=== PATIENT | male | born 1955 | race Caucasian/White ===

== ENCOUNTER 2022-04-14 15:46 | Observation (INO) | payer MEDICARE, SELFPAY ==
[2022-04-14] VITALS (22 sets, daily range): BP systolic 145–183; BP diastolic 81–108; PULSE 61–91; RESP 0–25; TEMP 36.6–37.1; O2SAT 21–97; BMI 33.6
--- NOTE | 2022-04-14 16:01 | ECG_ITS ---
[facility], 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 Measurements Intervals [place] Rate: 82 P: 57 SC: 160 QRS: -56 QRSD: 99 T: -35 QT: 382 QTc: 446 Interpretive Statements SINUS RHYTHM INCOMPLETE RIGHT BUNDLE BRANCH BLOCK [90+ ms QRS DURATION, TERMINAL R IN V1/V2, 40+ ms S IN I/aVL/V4/V5/V6] LEFT ANTERIOR FASCICULAR BLOCK [QRS AXIS <= -45, QR IN I, RS IN II] POSSIBLE ANTERIOR MYOCARDIAL INFARCTION , OF INDETERMINATE AGE [30 ms Q WAVE IN V3/V4, OR R < 0.2 mV IN V4] No previous ECG available for comparison Electronically Signed On 04-15-2022 14:29:09 CDT by Thony Valiente M.D. [id number]
--- NOTE | 2022-04-14 16:03 | ED_ITS ---
HPI - Chest Pain General: Chief Complaint: Chest Pain Stated Complaint: cp Time Seen by Provider: 04/14/22 16:03 History of Present Illness: Mr. Paulino is a 66-year-old gentleman with history of hypertension, hyperlipidemia, diabetes, former smoker who presents to the emergency department due to chest pain. Reports intermittent episodes in the past typically in the left shoulder associated with exertion that improves with rest however starting last night he began to have more central chest pain which she just describes as a pain that radiates to the left shoulder and arm. Mild associated shortness of breath. Additionally had an episode of dizziness last night though this was associated with low blood sugar and improved after eating. Chest pain became severe with exertion earlier today and has not significantly improved since onset. Positive family history for sister who in her 40s from heart disease. No other specific changes in health, exacerbating, or alleviating factors identified. Onset (ago): hour(s) Timing of current episode: constant Prior episodes: Yes Onset: during exertion Pain location: substernal Pain radiation: left arm and left shoulder Severity: severe Quality: other (Pain) Exacerbating factors: exertion Associated symptoms: Reports dyspnea Treatment prior to arrival: aspirin and nitroglycerin Review of Systems General: Reports: 10 or more systems reviewed and unremarkable except in HPI and below Resp: Reports: dyspnea PFSH ED PFSH: Medical History Diabetes Hyperlipidemia Hypertension Surgical History History of cataract surgery History of hernia repair History of shoulder surgery Family History Other Family history of premature coronary artery disease Social History Smoking and tobacco status: former smoker Physical Exam Const: COMMON NORMALS: alert GENERAL APPEARANCE: cooperative and well developed HENMT: COMMON NORMALS: normocephalic and atraumatic HEAD & SCALP: normocephalic and atraumatic Eye: COMMON NORMALS: conjunctivae normal CONJUNCTIVA: Yes conjunctivae normal SCLERA: sclerae normal Neck/C-Spine: COMMON NORMALS: supple GENERAL: Yes trachea midline Resp: COMMON NORMALS: normal respiratory effort and clear to auscultation bilaterally EFFORT & INSPECTION: Yes able to speak in complete sentences AUSCULTATION: clear to auscultation bilaterally Cardio: COMMON NORMALS: regular rate and regular rhythm RATE: regular rate RHYTHM: regular rhythm GI: COMMON NORMALS: Soft to palpation PALPATION: Yes Soft to palpation and No Tenderness to palpation present (GI) Extremity: GENERAL: Yes normal exam except as noted and No edema Neuro: COMMON NORMALS: moves all extremities SENSORIUM/ORIENTATION: Yes alert and No Orientation impaired Psych: COMMON NORMALS: mental status grossly normal and Normal thought process present THOUGHT PROCESS: Normal thought process present Course ED course: - Patient was seen and evaluated by me at bedside - Patient placed on cardiac monitors, IV access obtained - Initial evaluation notable for exam as above - Labs and xrays personally interpreted by me. EKG with nonspecific ST segment abnormalities, no STEMI. -Analgesia given. 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 - Labs notable for minimal leukocytosis, no significant metabolic abnormality. - Imaging notable for no lobar consolidation or pneumothorax. - Upon serial reexamination after treatment the patient was improved - Based on patient history, evaluation, and testing as interpreted the most likely cause of the patient's condition is NSTEMI - The results of ED evaluation were discussed with the patient including plan for admission due to requirement for level of care not available if discharged to prevent significant worsening/deterioration. - Admitting service was contacted and Dr Arredondo with the hospitalist service agreed to admit the patient - Patient was admitted without further deterioration or significant events. Note: Click bubbles or prepopulated wan in note writing are used for assistance with data collection and billing and are inherently more limited than narrative and other text portions of this note. Please use narrative for additional clinical history and defer to narrative/free test for any case of contradictory information. If information appears in only free text or click bubble it should be considered present or absent as reported. Please contact note press writer for clarifications of clinical information or contradictory information. MDM is a brief summary, contradictory or erroneous seeming information should be clarified and full note should be reviewed. Vital Signs: Vital signs: Vital Signs Temperature 98.7 F 04/15/22 15:09 Pulse Rate 85 04/15/22 15:09 Respiratory Rate 23 H 04/15/22 15:09 Blood Pressure 146/83 04/15/22 15:09 Pulse Oximetry 92 04/15/22 15:09 Oxygen Delivery Me thod 04/15/22 11:45 Oxygen Flow Rate 94 04/15/22 11:45 MDM - Chest Pain Medical Decision Making 67-year-old gentleman presenting with chest pain. History is concerning for cardiac chest pain and patient has evidence of NSTEMI. Admitted for further management and cardiology intervention. Medical Records I reviewed the patient's medical records. Lab Data I reviewed the patient's lab results. : 04/14/22 16:34 04/15/22 04:33 Radiology Impressions Chest X-Ray 04/14/22 16:15 IMPRESSION: Prominent right hilar region, perhaps reflecting prominent pulmonary vasculature, consider further evaluation with a chest CT to evaluate for possible adenopathy or a less likely mass. Laboratory Results WBC 11.5 10^3/uL (4.0-10.0) H 04/14/22 16:34 RBC 5.31 10^6/uL (4.1-5.3) H 04/14/22 16:34 Hgb 15.1 g/dL (11.7-16.6) 04/14/22 16:34 Hct 46.4 % (42.0-52.0) 04/14/22 16:34 MCV 87.4 fl (80-94) 04/14/22 16:34 MCH 28.4 pg (28.0-34.0) 04/14/22 16:34 MCHC 32.5 g/dL (30.0-36.0) 04/14/22 16:34 RDW 14.6 % (12.1-15.1) 04/14/22 16:34 Plt Count 243 10^3/cmm (130-400) 04/14/22 16:34 MPV 10.4 fL (7.4-10.4) 04/14/22 16:34 Lymph % (Auto) Not Reportable 04/14/22 16:34 [place] % (Auto) Not Reportable 04/14/22 16:34 Lymph # (Auto) Not Reportable 04/14/22 16:34 [place] # (Auto) Not Reportable 04/14/22 16:34 Total Counted 100 (0-100) 04/14/22 16:34 Atypical Lymphs % 13.0 % (0-5) H 04/14/22 16:34 Absolute Neutrophils 4.9 10^3/cmm (1.4-6.5) 04/14/22 16:34 Segmented Neutrophils 43 % 04/14/22 16:34 Abs Segm Neuts (Man) 4.9 10/cmm (1.6-7.1) 04/14/22 16:34 Band Neutrophils 0.0 % 04/14/22 16:34 Abs Band Neuts (Man) 0.0 10^3/cmm (0.0-1.2) 04/14/22 16:34 Absolute Lymphocytes 5.8 10^3/cmm (1.2-3.4) H 04/14/22 16:34 Lymphocytes (Manual) 37 % 04/14/22 16:34 Monocytes (Manual) 4.0 % 04/14/22 16:34 Absolute Monocytes 0.5 10^3/cmm (0.1-0.6) 04/14/22 16:34 Eosinophils (Manual) 3 % 04/14/22 16:34 Absolute Eosinophils 0.3 10^3/cmm (0.0-0.7) 04/14/22 16:34 Basophils (Manual) 0.0 % 04/14/22 16:34 Absolute Basophils 0.0 10^3/cmm (0.0-0.2) 04/14/22 16:34 Nucleated RBCs 1.0 /100WBC (0-1) 04/14/22 16:34 Smudge Cells 4+ H 04/14/22 16:34 Platelet Estimate Normal (Normal) 04/14/22 16:34 Sodium 137 mmol/L (136-145) 04/14/22 16:34 Potassium 4.4 mmol/L (3.5-5.1) 04/14/22 16:34 Chloride 102 mmol/L (98-107) 04/14/22 16:34 Carbon Dioxide 23 mmol/L (22-29) 04/14/22 16:34 Anion Gap 16.4 (5-19) 04/14/22 16:34 BUN 18 mg/dL (8-23) 04/14/22 16:34 Creatinine 1.0 mg/dL (0.7-1.2) 04/14/22 16:34 GFR Calculation 74.3 mL/min (90-130) L 04/14/22 16:34 Glucose 224 mg/dL (65-115) H 04/14/22 16:34 Calculated Osmolality 293 mOsm/kg (285-295) 04/14/22 16:34 Calcium 9.4 mg/dL (8.5-10.5) 04/14/22 16:34 Total Bilirubin 0.4 mg/dL (0.15-1.2) 04/14/22 16:34 AST 23 U/L (0-40) 04/14/22 16:34 ALT 29 U/L (0-41) 04/14/22 16:34 Alkaline Phosphatase 60 U/L (40-130) 04/14/22 16:34 Troponin T Baseline 83 ng/L (0-15) H 04/14/22 16:34 NT-Pro-B Natriuret Pep 479 pg/mL (0-125) H 04/14/22 16:34 Total Protein 6.8 g/dL (6.6-8.7) 04/14/22 16:34 Albumin 4.1 g/dL (3.5-5.2) 04/14/22 16:34 Globulin 2.7 g/dL (1.3-4.6) 04/14/22 16:34 Lipase 55 U/L (13-60) 04/14/22 16:34 Discharge Plan Discharge Patient Disposition: Placed in Observation Admit Provider: Daren Arredondo Clinical Impression: Chest pain, Acute non-ST elevation myocardial infarction (NSTEMI) Coding Level of Care Code ED Sales Representative Facility Services for Aveg Fwd Exam Comprehensive
--- NOTE | 2022-04-14 16:15 | XRR_ITS ---
PROCEDURE INFORMATION: Exam: XR Chest Exam date and time: 04/14/2022 4:25 PM Age: 66 years old Clinical indication: Angina; Additional info: Cp TECHNIQUE: Imaging protocol: Radiologic exam of the chest. Views: 1 view. COMPARISON: No relevant prior studies available. FINDINGS: Lungs: Prominent right hilar region, perhaps reflecting prominent pulmonary vasculature, consider further evaluation with a chest CT to evaluate for possible adenopathy or a less likely mass. Pleural spaces: Unremarkable. No pleural effusion. No pneumothorax. Heart/Mediastinum: Unremarkable. No cardiomegaly. Bones/joints: Unremarkable. XR/XR chest 1V portable [id number] IMPRESSION: Prominent right hilar region, perhaps reflecting prominent pulmonary vasculature, consider further evaluation with a chest CT to evaluate for possible adenopathy or a less likely mass.
[2022-04-14 16:51] LABS: Hematocrit 46.4 % (42.0-52.0); Hemoglobin 15.1 g/dL (11.7-16.6); Mean Corpuscular HGB Conc 32.5 g/dL (30.0-36.0); Mean Corpuscular Hemoglobin 28.4 pg (28.0-34.0); Mean Corpuscular Volume 87.4 fl (80-94); Mean Platelet Volume 10.4 fL (7.4-10.4); Platelet Count 243 10^3/cmm (130-400); Red Blood Count 5.31 10^6/uL (4.1-5.3); Red Cell Distribution Width 14.6 % (12.1-15.1); White Blood Count 11.5 10^3/uL (4.0-10.0)
[2022-04-14] MEDS: morphine 4 mg/mL SDV 1 mL IVP (16:51)
--- NOTE | 2022-04-14 17:14 | PC.NURSE ---
patient continues to c/o left shoulder pain 02/13
[2022-04-14 17:22] LABS: Troponin(5th) Baseline 83 ng/L (0-15)
[2022-04-14 17:29] LABS: Absolute Segmented Neutrophil 4.9 10/cmm (1.6-7.1); Lymphocytes 37 %; Segmented Neutrophils 43 %; Slide Review Slide Review Perform; Total Cells Counted 100 (0-100)
[2022-04-14 17:30] LABS: Absolute Eosinophils 0.3 10^3/cmm (0.0-0.7); Absolute Neutrophil 4.9 10^3/cmm (1.4-6.5); Eosinophils 3 %; Lymphocytes Absolute 5.8 10^3/cmm (1.2-3.4); Monocytes Absolute 0.5 10^3/cmm (0.1-0.6); Platelet Estimate Normal (Normal); Smudge Cells 4+
[2022-04-14 17:31] LABS: Alanine Aminotransferase 29 U/L (0-41); Albumin Level 4.1 g/dL (3.5-5.2); Alkaline Phosphatase 60 U/L (40-130); Anion Gap 16.4 (5-19); Aspartate Amino Transferase 23 U/L (0-40); Blood Urea Nitrogen 18 mg/dL (8-23); Calcium 9.4 mg/dL (8.5-10.5); Carbon Dioxide 23 mmol/L (22-29); Chloride 102 mmol/L (98-107); Globulin 2.7 g/dL (1.3-4.6); Glomerular Filtration Rate 74.3 mL/min (90-130); Glucose 224 mg/dL (65-115); Lipase 55 U/L (13-60); NT Pro B Type Natriuretic Pept 479 pg/mL (0-125); Osmolality Calculated 293 mOsm/kg (285-295); Potassium 4.4 mmol/L (3.5-5.1); Sodium 137 mmol/L (136-145); Total Bilirubin 0.4 mg/dL (0.15-1.2); Total Protein 6.8 g/dL (6.6-8.7)
[2022-04-14] MEDS: nitroglycerin 0.4 mg sublingual Tablet SUBLINGUAL ×3 (17:42→23:19)
--- NOTE | 2022-04-14 17:52 | ECG_ITS ---
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 Measurements Intervals [place] Rate: 75 P: -9 GA: 143 QRS: -59 QRSD: 96 T: -90 QT: 392 QTc: 438 Interpretive Statements SINUS RHYTHM LOW QRS VOLTAGE IN PRECORDIAL LEADS [QRS DEFLECTION < 1.0 mV IN CHEST LEADS] INCOMPLETE RIGHT BUNDLE BRANCH BLOCK [90+ ms QRS DURATION, TERMINAL R IN V1/V2, 40+ ms S IN I/aVL/V4/V5/V6] LEFT ANTERIOR FASCICULAR BLOCK [QRS AXIS <= -45, QR IN I, RS IN II] PROBABLE ANTEROSEPTAL MYOCARDIAL INFARCTION , OF INDETERMINATE AGE [35 ms Q WAVE IN V1-V4] MODERATE T-WAVE ABNORMALITY, CONSIDER LATERAL ISCHEMIA [-0.1+ mV T-WAVE IN I/aVL/V5/V6] Compared to ECG 04/14/2022 16:09:35 Low QRS voltage now present T-wave abnormality now present Possible ischemia now present Myocardial infarct finding still present Electronically Signed On 04-15-2022 14:41:38 CDT by Thony Valiente M.D. [email or web address]/store/[id number]
--- NOTE | 2022-04-14 17:55 | PC.NURSE ---
ekg complete and given to physician
--- NOTE | 2022-04-14 18:06 | PC.NURSE ---
patient states he has relief following first dose of nitro
--- NOTE | 2022-04-14 18:52 | USCV_ITS ---
Jack Paulino Age: 66 Gender: M : 1955 Exam Date: 04/14/2022 19:59 Ordering Phys: Daren Arredondo MD Technologist: SANTOS Exam Location: [facility] [place] Indication: chest pain, elevated troponin, no history of cardiac intervention per patient BP: 151 / 86 HR: 78 Rhythm: Sinus Technical Quality: Adequate MEASUREMENTS (Male / Female) Normal Values 2D ECHO LV Diastolic Diameter PLAX 4.7 cm 4.2 - 5.9 / 3.9 - 5.3 cm LV Systolic Diameter PLAX 3.3 cm IVS Diastolic Thickness 1.4 cm 0.6 - 1.0 / 0.6 - 0.9 cm IVS Systolic Thickness 1.3 cm LVPW Diastolic Thickness 1.4 cm 0.6 - 1.0 / 0.6 - 0.9 cm LVPW Systolic Thickness 1.6 cm LVOT Diameter 2.3 cm LV Ejection Fraction 2D Teich 55.2 % LV Ejection Fraction MOD 2C 38.4 % LV Ejection Fraction 2C AL 36.6 % LA Diameter 3.8 cm LA Width 4.3 cm LA Height 6.3 cm RA Width 4.0 cm RA Height 4.1 cm Aorta at Sinotubular Diameter 3.8 cm IVC Diameter 2.5 cm M-MODE Aortic Annulus Diameter 3.7 cm LA Ao Ratio MM 1.0 MV E Point Septal Separation 1.1 cm DOPPLER AV Peak Velocity 93.0 cm/s LVOT Peak Velocity 84.0 cm/s AV Area Cont Eq vti 3.0 cm squared AV Area Cont Eq pk 3.7 cm squared MV Area PHT 5.6 cm squared Mitral E to A Ratio 1.3 MV E' Velocity 49.5 cm/s Mitral E to MV E' Ratio 8.4 Mitral E to LV E' Lateral Ratio 8.5 Mitral E to LV E' Septal Ratio 8.4 TR Peak Velocity 271.0 cm/s TR Peak Gradient 29.4 mmHg TV Peak E Velocity 45.0 cm/s Right Atrial Pressure 10.0 mmHg Pulmonary Artery Systolic Pressu 39.4 mmHg PV Peak Velocity 89.0 cm/s RV Acceleration Time 0.1 s RV Ejection Time 0.4 s RV AcT/ET 0.3 FINDINGS Left Ventricle Left ventricle is normal in size. LV systolic function is severely reduced with EF of 25 to 30%. Apical wall, mid to apical anterolateral and anterior leija are akinetic. Severe hypokinesis of mid to apical anteroseptal, inferior lateral leija. Diastolic function is normal. [place] is not very well visualized however LV thrombus cannot be ruled out. Right Ventricle Grossly normal in size and function Right Atrium Not well visualized Left Atrium Not well-visualized Mitral Valve Mitral valve is structurally normal. No significant stenosis. Mild regurgitation. Aortic Valve Structurally normal valve. Mild aortic regurgitation. No significant stenosis. Tricuspid Valve Mild tricuspid regurgitation. RVSP is 35 to 40 mmHg. This is consistent with mild pulmonary hypertension. Pulmonic Valve Not well-visualized. Pericardium Normal Aorta Mildly dilated aorta IVC CONCLUSIONS Left ventricle is normal in size. LV systolic function is severely reduced with EF of 25 to 30%. Above-mentioned regional wall motion abnormalities are seen. [place] is not very well visualized however LV thrombus cannot be ruled out. Mild mitral regurgitation. Mild aortic regurgitation. Mild mild pulmonary hypertension. Mild tricuspid regurgitation. Mildly dilated aorta. No comparison studies are available. Will recommend limited echocardiogram with contrast to rule out LV thrombus Thony Valiente MD (Electronically Signed) Final Date: 15 April 2022 13:38 S
[2022-04-14 19:10] LABS: Troponin 5 2HR 112.3 ng/L (0-15); Troponin 5 2HR Delta 29.3 ABS# (0-10)
--- NOTE | 2022-04-14 19:23 | PM.HP ---
Providers/Chief Complaint Admitting Physician: Daren Arredondo MD Primary Care Provider: Mely Vides DO Chief Complaint: cp History of Present Illness Jack Paulino is a 66 year old male with diabetes, hyperlipidemia, hypertension and a remote history of smoking stopped 20 years ago. He also has a sister who had ME in her 40s patient was noted recently that with walking from his neighbors house back to his he had chest discomfort mild and left shoulder pain. This seemed to be relieved by rest. Today he states he had severe chest pain but that it had been off and on since yesterday 8 PM As result he came to the emergency department and had troponin 80 increasing to 120. He has been referred for admission and also cardiology has been consulted with plan for evaluation in the morning. EKG shows incomplete bundle branch block but there is poor septal R wave progression and T wave abnormality suspicious for ischemia Review of Systems Narrative: General patient denies weight gain or weight loss Cardiovascular positive for chest pain on exertion has never had coronary artery disease Respiratory no shortness of breath cough wheezing GI no nausea vomiting diarrhea constipation no dysuria hematuria incontinence Neuro no seizures strokes limb weakness Heme no history of bleeding problems he does bruise easily [place] bruised all the time Musculoskeletal he has had shoulder surgery before and states that although the discomfort sometimes feels like what he had before his shoulder surgery generally he has no pain and has 96% function of his arms Psych negative Medications/Allergies Home Medications Medication Instructions Recorded Confirmed Last Taken Type apple cider vinegar 300 mg tablet 900 mg PO BID 04/14/22 04/14/22 04/14/22 History aspirin 81 mg chewable tablet 81 mg PO BEDTIME 04/14/22 04/14/22 04/13/22 History cyanocobalamin (vitamin B-12) 1,000 mcg PO DAILY 04/14/22 04/14/22 04/14/22 History 1,000 mcg tablet (Vitamin B-12) fenofibrate 160 mg tablet 160 mg PO DAILY 04/14/22 04/14/22 04/13/22 History fluoxetine 20 mg capsule 20 mg PO DAILY 04/14/22 04/14/22 04/14/22 History gabapentin 400 mg capsule 400 mg PO TID 04/14/22 04/14/22 04/14/22 History glipizide 10 mg tablet 10 mg PO BID 09/03/2804/14/22 04/14/22 History levothyroxine 50 mcg tablet 50 mcg PO DAILY 04/14/22 04/14/22 04/14/22 History lisinopril 10 mg tablet 10 mg PO DAILY 04/14/22 04/14/22 04/14/22 History meclizine 25 mg tablet 25 mg PO BID 04/14/22 04/14/22 04/14/22 History meloxicam 15 mg tablet 15 mg PO DAILY 04/14/22 04/14/22 04/14/22 History metformin 1,000 mg tablet 1,000 mg PO BID 04/14/22 04/14/22 04/14/22 History pantoprazole 40 mg tablet,delayed 40 mg PO DAILY 04/14/22 04/14/22 04/14/22 History release tramadol 50 mg tablet 100 mg PO TID PRN Pain 04/14/22 04/14/22 04/14/22 History trazodone 50 mg tablet 50 mg PO BEDTIME 04/14/22 04/14/22 04/13/22 History vit 1 tab PO BID 04/14/22 04/14/22 04/14/22 History [id number] 500 mg-50 mg-25 mg-40 mg tablet (Bioflex) Allergies Allergy/AdvReac Type Severity Reaction Status Date / Time metformin [From t] Allergy ADR-Dizzine Verified 04/14/22 16:02 ss sitagliptin [From t] Allergy ADR-Dizzine Verified 04/14/22 16:02 ss PFSH Acute PFSH: Medical History Diabetes Hyperlipidemia Hypertension Surgical History History of cataract surgery History of hernia repair History of shoulder surgery Family History Other Family history of premature coronary artery disease Social History Smoking and tobacco status: former smoker Vitals/I&O/Wt Last Vital Signs Temp 98 F 04/14/22 15:49 Pulse 86 04/14/22 19:14 Resp 17 04/14/22 19:14 BP 152/107 04/14/22 19:14 Pulse Ox 97 04/14/22 19:14 O2 Del Method 04/14/22 19:14 Weight last 48 hrs Weight 109.316 kg Physical Exam Narrative: General well-developed well-nourished male in no acute cardiopulmonary stress CV regular rate and rhythm Lungs clear to auscultation bilateral Abdomen positive bowel sounds soft nontender Calves no tenderness pedal edema shoulders left shoulder normal range of motion no tenderness with active or passive range of motion Psych mood and affect appropriate Skin warm and dry Data : 04/14/22 16:34 04/14/22 16:34 A&P Assessment and plan (1) Acute non-ST elevation myocardial infarction (NSTEMI): Started on a heparin drip hold metformin. Repeat mini panel and troponin in the morning Status: Acute (2) Diabetes: Hold metformin Status: Acute (3) Hyperlipidemia: Continue his cholesterol medication fenofibrate Add atorvastatin 40 mg p.o. x1 Status: Acute (4) Hypertension: Blood pressure stable Status: Acute Attestations Medical Necessity Statement*: Patient be admitted to the hospital for cardiology consultation potentially angiogram tomorrow Time Spent in Patient Care: 70 minutes spent in evaluation coronation care for this patient today Coding Level of Care Code Acute Anthropologist for Jenna Fwisabella History Comprehensive Exam Comprehensive Medical Decision Making High Complexity Diagnoses Acute non-ST elevation myocardial infarction (NSTEMI) I21.4 Diabetes E11.9 Hyperlipidemia E78.5 Hypertension I10
[2022-04-14] MEDS: trazodone 50 mg Tablet PO (21:14)
[2022-04-14] MEDS: pantoprazole DR 40 mg Tablet PO (21:14)
[2022-04-14] MEDS: gabapentin 400 mg Capsule PO (21:14)
[2022-04-14] MEDS: aspirin 81 mg Chew Tablet 324 MG PO (21:14)
[2022-04-14] MEDS: atorvastatin 40 mg Tablet PO (21:14)
[2022-04-14 21:31] LABS: Partial Thromboplastin Time 22.6 SECONDS (23.9-36.7)
--- NOTE | 2022-04-14 22:15 | ECG_ITS ---
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 Measurements Intervals [place] Rate: 78 P: 66 PA: 169 QRS: -50 QRSD: 117 T: -85 QT: 383 QTc: 438 Interpretive Statements SINUS RHYTHM LEFT ANTERIOR FASCICULAR BLOCK [QRS AXIS <= -45, QR IN I, RS IN II] POSSIBLE ANTERIOR MYOCARDIAL INFARCTION , OF INDETERMINATE AGE [30 ms Q WAVE IN V3/V4, OR R < 0.2 mV IN V4] MODERATE T-WAVE ABNORMALITY, CONSIDER LATERAL ISCHEMIA [-0.1+ mV T-WAVE IN I/aVL/V5/V6] Compared to ECG 04/14/2022 17:52:57 Incomplete right bundle-branch block no longer present Myocardial infarct finding still present T-wave abnormality still present Possible ischemia still present Electronically Signed On 04-15-2022 14:40:09 CDT by Thony Valiente M.D. [id number]
[2022-04-14] MEDS: heparin drip 25,000 UNIT/500 ML PREMIX 31 UNIT IV (22:36)
[2022-04-14] MEDS: heparin 5,000 unit/mL INJ 1 mL IV (22:36)
--- NOTE | 2022-04-14 23:30 | ECG_ITS ---
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 Measurements Intervals [place] Rate: 61 P: 50 CO: 161 QRS: -56 QRSD: 122 T: -89 QT: 430 QTc: 436 Interpretive Statements SINUS RHYTHM LEFT ANTERIOR FASCICULAR BLOCK [QRS AXIS <= -45, QR IN I, RS IN II] POSSIBLE ANTERIOR MYOCARDIAL INFARCTION , OF INDETERMINATE AGE [30 ms Q WAVE IN V3/V4, OR R < 0.2 mV IN V4] MODERATE T-WAVE ABNORMALITY, CONSIDER LATERAL ISCHEMIA [-0.1+ mV T-WAVE IN I/aVL/V5/V6] MODERATE T-WAVE ABNORMALITY, CONSIDER INFERIOR ISCHEMIA [-0.1+ mV T-WAVE IN II/aVF] Compared to ECG 04/14/2022 20:38:26 No significant changes Electronically Signed On 04-15-2022 14:27:45 CDT by Thony Valiente M.D. [id number]
--- NOTE | 2022-04-14 23:36 | PC.NURSE ---
Patient c/o persistent chest pain with only short term relief with nitrostat. Informed Dr Mak and received telephone order to start Nitro-Bid 1gm topically q6h. RBVO
[2022-04-14] MEDS: TRAMadol 50 mg Tablet 100 MG PO (23:38)
[2022-04-14] MEDS: nitroglycerin 1 gm/inch oint Pkt 1 INCH TOPICAL (23:39)
[2022-04-14 23:57] LABS: Troponin 5 6HR 159.8 ng/L (0-15); Troponin 5 6HR Delta 76.8 ng/L (0-12)
[2022-04-15] VITALS (63 sets, daily range): BP systolic 125–187; BP diastolic 6–135; PULSE 58–137; RESP 0–23; TEMP 36.4–37.1; O2SAT 91–99; BMI 34.9
[2022-04-15] MEDS: nitroglycerin 0.4 mg sublingual Tablet SUBLINGUAL ×2 (02:38→07:23)
--- NOTE | 2022-04-15 03:44 | PC.NURSE ---
Patient c/o chest pain 3 times thus far during shift. Pain relieved each time after 1 sublingual nitro. See MAR for administered times. Patient was ordered nitro paste after 2nd episode. Currently pt is resting in bed with eyes closed.
[2022-04-15 05:12] LABS: Blood Urea Nitrogen 15 mg/dL (8-23); Calcium 9.1 mg/dL (8.5-10.5); Carbon Dioxide 24 mmol/L (22-29); Chloride 105 mmol/L (98-107); Glomerular Filtration Rate 83.9 mL/min (90-130); Glucose 195 mg/dL (65-115); Osmolality Calculated 292 mOsm/kg (285-295); Sodium 138 mmol/L (136-145)
[2022-04-15 05:14] LABS: Anion Gap 13.1 (5-19); Potassium 4.1 mmol/L (3.5-5.1)
[2022-04-15 05:27] LABS: Partial Thromboplastin Time 50.9 SECONDS (23.9-36.7)
[2022-04-15] MEDS: nitroglycerin 1 gm/inch oint Pkt 1 INCH TOPICAL (05:45)
[2022-04-15] MEDS: heparin 5,000 unit/mL INJ 1 mL IV (05:45)
--- NOTE | 2022-04-15 06:57 | P.CONIM_ITS ---
Providers/Reason For Consult Consulting Physician/Specialty*: Thony Valiente MD/Cardiology Reason for Consult*: NSTEMI Requesting Physician: Dr Stinson Attending Physician: Daren Arredondo MD Primary Care Provider: Mely Vides DO History of Present Illness History of Present Illness Jack Paulino is a 66 year old male with past medical history of hypertension, hyperlipidemia and diabetes who presented to the hospital with 3 days of on and off chest pain symptoms. Yesterday in the afternoon it became severe and persistent. In the emergency room he was given nitro which improved the pain. Overnight on and off he has continued having substernal chest pain that radiates to the left arm. Currently on heparin drip. He was given aspirin. No Plavix given. Troponins trended up significantly from 88 baseline to 160. EKG shows T wave inversions in inferior and lateral leads. Review of Systems Narrative: CONSTITUTIONAL: No fever chills weight loss or gain or night sweats. [] HEENT: Normocephalic, atraumatic.[] RESPIRATORY: No cough, sputum, hemoptysis or wheezing.[] CARDIOVASCULAR: Has chest pain GI: no nausea vomiting diarrhea. [] GENETIC ENGINEER: No numbness, tingling, weakness or loss of function in any part of the body. [] MUSCULOSKELETAL: No knee or joint pain or rashes. [] Medications/Allergies Home Medications Medication Instructions Recorded Confirmed Last Taken Type apple cider vinegar 300 mg tablet 900 mg PO BID 04/14/22 04/14/22 04/14/22 History aspirin 81 mg chewable tablet 81 mg PO BEDTIME 04/14/22 04/14/22 04/13/22 History cyanocobalamin (vitamin B-12) 1,000 mcg PO DAILY 04/14/22 04/14/22 04/14/22 History 1,000 mcg tablet (Vitamin B-12) fenofibrate 160 mg tablet 160 mg PO DAILY 04/14/22 04/14/22 04/13/22 History fluoxetine 20 mg capsule 20 mg PO DAILY 04/14/22 04/14/22 04/14/22 History gabapentin 400 mg capsule 400 mg PO TID 04/14/22 04/14/22 04/14/22 History glipizide 10 mg tablet 10 mg PO BID 04/14/22 04/14/22 04/14/22 History levothyroxine 50 mcg tablet 50 mcg PO DAILY 04/14/22 04/14/22 04/14/22 History lisinopril 10 mg tablet 10 mg PO DAILY 04/14/22 04/14/22 04/14/22 History meclizine 25 mg tablet 25 mg PO BID 04/14/22 04/14/22 04/14/22 History meloxicam 15 mg tablet 15 mg PO DAILY 04/14/22 04/14/22 04/14/22 History metformin 1,000 mg tablet 1,000 mg PO BID 04/14/22 04/14/22 04/14/22 History pantoprazole 40 mg tablet,delayed 40 mg PO DAILY 04/14/22 04/14/22 04/14/22 History release tramadol 50 mg tablet 100 mg PO TID PRN Pain 04/14/22 04/14/22 04/14/22 History trazodone 50 mg tablet 50 mg PO BEDTIME 04/14/22 04/14/22 04/13/22 History vit 1 tab PO BID 04/14/22 04/14/22 04/14/22 History [id number] 500 mg-50 mg-25 mg-40 mg tablet (Bioflex) Allergies Allergy/AdvReac Type Severity Reaction Status Date / Time metformin [From ] Allergy ADR-Dizzine Verified 04/14/22 16:02 ss sitagliptin [From ] Allergy ADR-Dizzine Verified 04/14/22 16:02 ss Current Medications Generic Name Dose Route Start Last Admin Trade Name Lina PRN Reason Stop Dose Admin Aspirin 81 mg 04/14/22 21:00 04/14/22 21:16 Aspirin 81 Mg Chew Tablet PO Not Given BEDTIME ROMAINE Gabapentin 400 mg 04/14/22 21:00 04/14/22 21:14 Gabapentin 400 Mg Capsule PO 400 mg TID ROMAINE Administration Heparin Sodium (Porcine) 0 unit 04/14/22 19:20 04/15/22 05:45 Heparin 5,000 Unit/Ml Inj 1 Ml IV 2,200 unit PRN PRN Administration Heparin weight-base protocol Protocol Heparin Sodium/Sodium Chloride 25,000 unit in 500 mls @ 0 mls/hr 04/14/22 19:30 04/15/22 05:45 Heparin Drip IV 15.09 unit/kg/hr .Q0M ROMAINE 33 mls/hr Titration Protocol Per Protocol Nitroglycerin 0.4 mg 04/14/22 17:39 04/15/22 02:38 Nitroglycerin 0.4 Mg Sublingual Tablet SUBLINGUAL 1 tab Q5M PRN Administration CHEST PAIN Nitroglycerin 1 inch 04/14/22 23:30 04/15/22 05:45 Nitroglycerin 1 Gm/Inch Oint Pkt TOPICAL 1 inch Q6H ROMANIE Administration Pantoprazole Sodium 40 mg 04/14/22 18:45 04/14/22 21:[address] 40 Mg Tablet PO 40 mg DAILY ROMAINE Administration Tramadol HCl 100 mg 04/14/22 19:48 04/14/22 23:38 Tramadol 50 Mg Tablet PO 100 mg TID PRN Administration Pain Trazodone HCl 50 mg 04/14/22 21:00 04/14/22 21:14 Trazodone 50 Mg Tablet PO 50 mg BEDTIME ROMAINE Administration PFSH Acute PFSH: Medical History Diabetes Hyperlipidemia Hypertension Surgical History History of cataract surgery History of hernia repair History of shoulder surgery Family History Other Family history of premature coronary artery disease Social History Smoking and tobacco status: former smoker Vitals/I&O/Wt Last Vital Signs Temp 97.6 F 04/15/22 03:24 Pulse 66 04/15/22 03:41 Resp 14 04/15/22 03:24 BP 142/85 04/15/22 03:41 Pulse Ox 92 04/15/22 03:24 O2 Del Method 04/14/22 23:19 O2 Flow Rate 94 04/15/22 03:41 04/14/22 04/14/22 04/15/22 14:59 22:59 06:59 Intake Total 240 / 240 221.65 / 461.65 Balance 240 / 240 221.65 / 461.65 Weight last 48 hrs Weight 241 lb Weight 241 lb Physical Exam Narrative: GENERAL: Patient is alert, awake and oriented x3. [] NECK: No jugular vein distension. [] HEENT: No cyanosis. No icterus. No pallor. [] HEART: Regular S1 and S2. No murmur, rub or gallop. [] LUNGS: Clear to auscultate bilaterally. [] CENTRAL NERVOUS SYSTEM: Grossly nonfocal. [] EXTREMITIES: Lower extremities with 1+ edema bilaterally. Pulses palpable in the lower extremities, both dorsalis pedis and posterior tibial. [] Data : 04/14/22 16:34 04/15/22 04:33 A&P Assessment and plan (1) Acute non-ST elevation myocardial infarction (NSTEMI): Status: Acute (2) Diabetes: Status: Acute (3) Hyperlipidemia: Status: Acute (4) Hypertension: Status: Acute Plan Patient has presented with non-ST elevation NE and has typical chest pain. Has multiple CAD risk factors. Continue aspirin. Hold off on Plavix till angiogram. Continue heparin drip. Nitro drip as needed. Keep NPO. We will proceed with coronary angiogram with possible percutaneous coronary intervention today. Risks and benefits of the procedure have been discussed with the patient. He understands the risks benefits and wants to pro ceed with it. Order echocardiogram. Thank you for involving us with care of this patient. We will continue to follow. Please call with questions Consult Attestations Medical Necessity Statement: Care expected to cross 2 midnights Coding Level of Care Code Acute Station Examiner for Jenna Herrera Diagnoses Acute non-ST elevation myocardial infarction (NSTEMI) I21.4 Diabetes E11.9 Hyperlipidemia E78.5 Hypertension I10
--- NOTE | 2022-04-15 08:06 | XACV_ITS ---
Exam Room: [facility] Ht: 180 cm Wt: 113 kg BSA: 2.42 m2 Gender: Male : 1955 Any Known Allergies: Other Exam Priority: Routine Indication(s): - Non-ST elevation AL Procedure(s): Procedure Description: Diagnostic procedure Procedure Description: Left Heart Catheterization Procedure Description: Left ventriculography Procedure Description: Coronary Angiography Diagnostic Cath Status: Urgent Diagnostic Findings * Mid Left Anterior Descending: Chronic total occlusion.. * Proximal Right Coronary Artery: Chronic total occlusion, CARO: 0 flow. * Left circumflex artery is a large sized vessel. * It gives rise to large sized OM that is patent. Proximal to * m * id Circumflex: significant 80% stenosis, CARO: 3 flow. Distal left circumflex artery has severe 90% stenosis.. * Left Main: luminal irregularities 20% stenosis, CARO: 3 flow. * Coronary angiography shows co-dominance. Conclusions 1. Severe multivessel coronary artery disease 2. . Severe proximal to mid 3. left circumflex artery stenosis. 4. SALESPERSON RECREATIONAL VEHICLES of mid LAD 5. seen. 6. Weak collaterals are seen. Mid RCA has SALESPERSON RECREATIONAL VEHICLES.. 7. Severe left ventricular systolic dysfunction. Ejection fraction of 25%. Mid to apical anterior wall, apical and mid to apical inferior leija have akinesis. Recommendations * Patient has multivessel CAD. Patient will benefit from heart team discussion regarding best strategy for revascularization. As we do not have CT surgery team availability this week, will transfer patient to tertiary care center for CT surgery evaluation. He may need viability prior. * Continue aspirin. Hold Plavix. Continue heparin and nitro drips. * Transferred to ICU. Interventional RX Recommendation: CABG Diagnostic RX Recommendation: CABG Anticoagulation: Heparin Ventriculography Ejection Fraction: 25.0 % Pressures Phase:Rest AO : 138 / 75 ( 106 ) @ 10:13:00 AM 148 / 82 ( 111 ) @ 10:13:00 AM LV : 151 / -3 / 22 @ 10:11:00 AM 150 / 0 / 29 @ 10:13:00 AM 150 / 0 / 28 @ 10:13:00 AM Valves Phase:DefaultPhase AV : 11.0 @ 9:22:17 AM 11.0 @ 9:22:17 AM AV Mean Gradient: 26.0 @ 9:22:17 AM 26.0 @ 9:22:17 AM Clinical Evaluation EBL: 5mL-10mL Procedural Details Pre-Procedure Time Out. Identified patient by full name and date of as verbalized by the patient/guarantor. Does the consent match the physician's order: Yes. Accurate & Complete Informed Consent: Yes. Inpatient/Outpatient History & Physical on Chart: Yes. If H&P is completed, is and addenduem needed: No; If yes, is the addendum complete: N/A. Visualize and Verify Site with Patient/Guarantor: N/A. Relevant Radiology Images available: Yes. Pre-op teaching completed and patient verbalized understanding. The risks, benefits, and alternatives of sedation and/or procedure were discussed by physician. The patient agrees to continue. Procedure started. [facility] Clinical Fraility Score: 3: Managing Well. Hedis Review Nurse Indications: ACS > 24 hours. Chest Pain Symptom Assessment: Atypical Angina. Current diagnosis: NSTEMI. PERRLA. Strong, equal hand rn med surg bilaterally. Lungs clear x 5 lobes. IV Site on Arrival: 18 gauge in the right anticubital. IV Fluids: 0.9% NaCl at KVO. 0 mL infused prior to medical laboratory technologist. Oxygen started at 2liters/min via nasal canula. right groin was prepped with chloroprep then draped in the usual sterile fashion. right radial was prepped with chloroprep then draped in the usual sterile fashion. Physician arrived. Baseline sample Acquired. HR: 42 BPM. Current Diagnosis : NSTEMI. Physician scrubbed in. Equipment: 5F - Femoral. Equipment: 6F - Femoral. Equipment: 5F - Radial. Equipment: 6F - Radial. Immediate Pre-Procedure Time Out. Correct Patient: Yes; Correct Procedure: Yes; Correct Site: Yes; Correct Patient Position: Yes; Correct Supplies: Yes; Dried Flammable Prep: Yes; Blood Products Available: N/A;. Lidocaine 1% infiltrated to the right radial. Arterial access obtained. A 5 prydeinig TIG catheter in over wire. Multiple views taken of left coronary artery. Catheter redirected to the RCA. Multiple views taken of right coronary artery. Catheter removed over the exchange wire. A CRD 5F 145 Angled Pig Diagnostic Catheter was advanced over the wire and used for Ventriculography. EDP Sample taken: LV 151/-4,22; HR: 78 BPM; SpO2: 96%. LV gram performed in SALAMANCA @ 10 mL/second for a total of 30 mL. Patient EF: Abnormal. EDP Sample taken: LV 150/-1,29; HR: 81 BPM; SpO2: 96%. Pullback taken: LV 150/-1,28; AO 138/75(106); Mean: 26mmHg, Peak to Peak: 11mmHg, SEP: 20sec/min; HR: 77 BPM; SpO2: 96%. Catheter removed over the exchange wire. Physician review of films. Physician scrubbed out. A TR Band was successful obtaining hemostatsis at the Right Radial artery insertion site. TR band placed. Hemostasis obtained. Post Procedure: Pulses reassessed and unchanged. PERRLA. Strong, equal hand rn med surg bilaterally. No VTE prophylaxis required. Medication waste: Lido 1 ml, Nitro 49.8 mg, Heparin 3500 units, Fentanyl 50 mcg. Total IV fluids: 44 mL. Fluoro: 2:07. Contrast type used: Omnipaque 300 mg/mL, 150 mL bottle. [id number]. Post-op diagnosis: Severe multivessel CAD. Complications: NONE. Estimated blood loss: 5mL-10mL. Responsiveness - Normal response to verbal stimuli; alert and oriented, PERRLA. Airway - Unaffected, no intervention required; spontaneous ventilation. Circulation: W/N/L, pulses unchanged. Nausea/Vomiting: No. Procedure completed. Patient transferred by wheelchair to CPRU. Vital chart was stopped. Access Site Site: Right Radial artery Sheath Size: 6 Fr Hemostasis Method: TR Band Hemostasis Success: Successful Procedure Medications Start: 8:41 AM Stop: 8:41 AM Medication: Versed Amount: 1 mg Route: I.V. Start: 8:41 AM Stop: 8:41 AM Medication: Fentanyl Amount: 50 mcg Route: I.V. Start: 8:56 AM Stop: 8:56 AM Medication: Versed Amount: 1 mg Route: I.V. Start: 8:59 AM Stop: 8:59 AM Medication: Nitrogylcerin Amount: 200 mcg Route: I.A. Start: 9:01 AM Stop: 9:01 AM Medication: Heparin Amount: 2500 units Route: I.V. I, the attending physician, have reviewed and verified all procedure medications. Yes, all medications given per verbal order History/Risk Factors Hypertension: Yes Dyslipidemia: Yes Peripheral Arterial Disease (PAD): No Myocardial Infarction (AL): No Obesity: No Renal Disease: No Prior Interventions PCI: No CABG: No Valve Surgery: No Report Signatures Finalized by Thony Valiente MD on 04/16/2022 04:20 PM
[2022-04-15] MEDS: meclizine 25 mg tablet PO (10:17)
[2022-04-15] MEDS: levothyroxine 50 mcg Tablet PO (10:17)
[2022-04-15] MEDS: pantoprazole DR 40 mg Tablet PO (10:17)
[2022-04-15] MEDS: gabapentin 400 mg Capsule PO (10:17)
[2022-04-15] MEDS: fluoxetine 20 mg Capsule PO (10:17)
[2022-04-15] MEDS: lisinopril 10 mg Tablet PO (10:18)
--- NOTE | 2022-04-15 10:26 | PC.NURSE ---
TR band in place, dry et intact. No drainage or hematoma noted. Pt c/o chest pain 3/10 on 0 to 10 pain scale, Dr. Valiente aware. Nitro IV running at 10 mcg/min. Vitals stable. Patient transferred to ICU floor per Dr. Valiente's orders. Report given to CHAD KIRKLAND.
[2022-04-15] MEDS: TRAMadol 50 mg Tablet 100 MG PO (11:23)
--- NOTE | 2022-04-15 11:48 | PC.CHAP ---
Pastoral Care Encounter/Spiritual Assessment Type of Contact [] Declined system support technician visit [] Patient/Family/Request visit [] Outpatient visit [] Follow-up visit [] Physician referral [] Code/Alert [x] Routine visit [] Staff referral [] Actively dying [] Patient sleeping [] Family support [] [] Out of room [] Palliative care [] [] Receiving care in room [] Pre-surgical visit [] Trauma [] Long length of stay [x] ICU visit [x] Other: PT tired.. wanting to rest Relational/Emotional Strength [] Patient feels connected with others/family/visitors/staff [] Distress [] Loneliness/isolation [] Abandonment Spirituality of Patient [] Person of Mely [] Attends Islam of their Mely [] Believes in Prayer [] Reads Bible or Hinduism materials [] There are Spiritual issues to be addressed System Support Technician Interventions [x] Prayer [] Active listening [] Non-anxious presence [] Spiritual/emotional support [] Crisis/trauma care [] Spiritual counseling [] Bereavement support [] Provided bereavement packet [] Provided Bible/devotional materials [] Provided toy/stuffed animal, coloring book to patient or family member [] Provided Communion [] Anointing/[place] [] Salvation [x] Completed spiritual assessment [] Other: Impact on Illness or Injury [] Angry [] Fearful [] Anxious [] Often cries [] Exhaustion [] Unable to work [] Unable to attend restorationist [] Unable to walk/stand [] Unable to read [] Unable to drive [] Unable to eat/drink [] Unable to sleep [] Unable to be with family [] Patient intubated [] Other: Summary Time spent with patient
--- NOTE | 2022-04-15 11:54 | PM.PN ---
Subjective Subjective: 66-year-old male with diabetes came in with exertional chest pain for the last 2 weeks. Patient was on heparin drip overnight and this morning had angiogram with Dr. Valiente showing circumflex stenosis as well as RCA and LAD chronic total occlusion with EF of 25%. I do not have the formal cath report but just the brief notes Though I am not 100% sure on the degree of stenoses it appears that he has three-vessel disease and is slated for surgical consult. BJ his nurse notes that the patient has had ongoing chest pain and evaluating the patient his hemodynamics are relatively stable now that nitroglycerin IV has been titrated upward but he is having 4/10 chest discomfort. He is trying to sleep with BiPAP but states that last night and today his chest discomfort is giving him insomnia Patient tells me his blood sugar has been well controlled with good hemoglobin A1c blood pressure also controlled and no hyperlipidemia. His smoking was stopped 20 years ago Vitals/I&O/Wt Last Vital Signs Temp 98.2 F 04/15/22 07:47 Pulse 64 04/15/22 10:28 Resp 18 04/15/22 10:28 BP 148/73 04/15/22 10:23 Pulse Ox 98 04/15/22 10:28 O2 Del Method 04/15/22 10:28 O2 Flow Rate 94 04/15/22 10:28 04/14/22 04/15/22 04/15/22 22:59 06:59 14:59 Intake Total 240 / 240 221.65 / 461.65 Balance 240 / 240 221.65 / 461.65 Weight last 48 hrs Weight 113.54 kg Weight 109.316 kg Weight 109.316 kg Physical Exam Narrative: General well-developed well-nourished man in no acute cardiac resting on BiPAP Patient is easily arousable. He tells me that he is having 4/10 left arm discomfort worse after blood pressure checks. CV regular rate and rhythm Lungs clear to auscultation bilaterally abdomen positive bowel sounds soft Calves no tenderness pedal edema Right arm with arterial hemostasis device in place right hand is warm Data : 04/14/22 16:34 04/15/22 04:33 A&P Assessment and plan (1) Acute non-ST elevation myocardial infarction (NSTEMI): Heart cath showed chronic total occlusion to the LAD which is a small vessel with a potential target for GUEVARA to LAD RCA shows a distal target that is viable Circumflex is dominant with 70 to 80% proximal occlusion potentially stent target Dr. Valiente tells me that the patient's condition warrants CTS consultation which is not available at this time and recommends transfer In the meantime we will try to maximize beta-regan, nitro drip and LEYLA inhibitor Additionally patient has been given 2 mg of morphine. Continue with oxygen and BiPAP support. Status: Acute (2) Diabetes: Hold metformin Patient reports his hemoglobin A1c Status: Acute (3) Hyperlipidemia: Continue his cholesterol medication fenofibrate Continue atorvastatin Status: Acute (4) Hypertension: Blood pressure stable Will lower to a goal of 100-1 10 Status: Acute Attestations Medical Necessity Statement*: Patient remains in the ICU for IV treatment with nitroglycerin and heparin. We will work on transfer for CTS surgery Critical Care Time: 40 minutes critical care time Coding Level of Care Code Acute Information Assurance Engineer for Jenna Fwisabella History Comprehensive Exam Comprehensive Medical Decision Making High Complexity Diagnoses Acute non-ST elevation myocardial infarction (NSTEMI) I21.4 Diabetes E11.9 Hyperlipidemia E78.5 Hypertension I10
[2022-04-15 12:16] LABS: Partial Thromboplastin Time 32.3 SECONDS (23.9-36.7)
[2022-04-15] MEDS: morphine 4 mg/mL SDV 1 mL 2 MG IVP (12:17)
--- NOTE | 2022-04-15 13:10 | PM.TDS ---
Transfer Summary Providers Date of Admission: 04/14/22 17:48 Date of Discharge/Transfer: 04/15/22 Attending Provider at Admission: Daren Arredondo MD Attending Provider at Transfer: Daren Arredondo MD Consults: Dr. Valiente Cardiology Primary Care Provider: Mely Vides DO Transfer Plans: Anticipated date of transfer: 04/15/22. Diagnoses at Discharge Discharge Diagnosis (1) Acute non-ST elevation myocardial infarction (NSTEMI): Details from hospital stay: Patient shows proximally occluded LAD which is a small vessel shows chronic total occlusion of the RCA with a distal target possible Shows 70 to 80% stenosis of the circumflex which is a dominant vessel Troponin elevation from 70 up to 150 Pain currently mild and in the left shoulder only treated with ongoing nitroglycerin drip, enalapril, heparin drip, metoprolol Patient is n.p.o. Status: Acute (2) Diabetes: Details from hospital stay: Blood sugars well controlled at home as evidenced by regularly managed A1c Status: Acute (3) Hyperlipidemia: Details from hospital stay: Treated with fenofibrate. I did give him atorvastatin 40 mg daily while he was here Status: Acute (4) Hypertension: Details from hospital stay: Stable Status: Acute Reason for Visit Reason for Visit cp Hospital Course Hospital Course Patient was referred to me for admission from the emergency department. His second troponin showed elevation and cardiology was consulted. Patient went selective coronary angiogram this morning. Due to the complex anatomy cardiothoracic surgery consultation is appropriate to help decide what is the best option for revascularization. 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 echo complete* [id number]] Stat Ultrasound 04/14/22 18:52 Taken Labs from last 24 hours 04/15/22 04/15/22 04/15/22 11:54 04:33 04:33 WBC RBC Hgb Hct MCV MCH MCHC RDW Plt Count MPV Lymph % (Auto) Woodson % (Auto) Lymph # (Auto) Woodson # (Auto) Total Counted Atypical Lymphs % Absolute Neutrophils Segmented Neutrophils Abs Segm Neuts (Man) Band Neutrophils Abs Band Neuts (Man) Absolute Lymphocytes Lymphocytes (Manual) Monocytes (Manual) Absolute Monocytes Eosinophils (Manual) Absolute Eosinophils Basophils (Manual) Absolute Basophils Nucleated RBCs Smudge Cells Platelet Estimate APTT 32.3 50.9 H D Sodium 138 Potassium 4.1 Chloride 105 Carbon Dioxide 24 Anion Gap 13.1 BUN 15 Creatinine 0.9 GFR Calculation 83.9 L Glucose 195 H Calculated Osmolality 292 Calcium 9.1 Total Bilirubin AST ALT Alkaline Phosphatase Troponin T Baseline Troponin T 120 Minute Delta Troponin T Troponin T Hi Sens 6Hr Troponin T Hi Sens 6Hr Delta NT-Pro-B Natriuret Pep Total Protein Albumin Globulin Lipase 04/14/22 04/14/22 04/14/22 22:47 21:04 18:12 WBC RBC Hgb Hct MCV MCH MCHC RDW Plt Count MPV Lymph % (Auto) Woodson % (Auto) Lymph # (Auto) Woodson # (Auto) Total Counted Atypical Lymphs % Absolute Neutrophils Segmented Neutrophils Abs Segm Neuts (Man) Band Neutrophils Abs Band Neuts (Man) Absolute Lymphocytes Lymphocytes (Manual) Monocytes (Manual) Absolute Monocytes Eosinophils (Manual) Absolute Eosinophils Basophils (Manual) Absolute Basophils Nucleated RBCs Smudge Cells Platelet Estimate APTT 22.6 L Sodium Potassium Chloride Carbon Dioxide Anion Gap BUN Creatinine GFR Calculation Glucose Calculated Osmolality Calcium Total Bilirubin AST ALT Alkaline Phosphatase Troponin T Baseline Troponin T 120 Minute 112.3 H Delta Troponin T 29.3 H* Troponin T Hi Sens 6Hr 159.8 H Troponin T Hi Sens 6Hr Delta 76.8 H* NT-Pro-B Natriuret Pep Total Protein Albumin Globulin Lipase 04/14/22 04/14/22 04/14/22 16:34 16:34 16:34 WBC 11.5 H RBC 5.31 H Hgb 15.1 Hct 46.4 MCV 87.4 MCH 28.4 MCHC 32.5 RDW 14.6 Plt Count 243 MPV 10.4 Lymph % (Auto) Not Reportable Woodson % (Auto) Not Reportable Lymph # (Auto) Not Reportable Woodson # (Auto) Not Reportable Total Counted 100 Atypical Lymphs % 13.0 H Absolute Neutrophils 4.9 Segmented Neutrophils 43 Abs Segm Neuts (Man) 4.9 Band Neutrophils 0.0 Abs Band Neuts (Man) 0.0 Absolute Lymphocytes 5.8 H Lymphocytes (Manual) 37 Monocytes (Manual) 4.0 Absolute Monocytes 0.5 Eosinophils (Manual) 3 Absolute Eosinophils 0.3 Basophils (Manual) 0.0 Absolute Basophils 0.0 Nucleated RBCs 1.0 Smudge Cells 4+ H Platelet Estimate Normal APTT Sodium 137 Potassium 4.4 Chloride 102 Carbon Dioxide 23 Anion Gap 16.4 BUN 18 Creatinine 1.0 GFR Calculation 74.3 L Glucose 224 H Calculated Osmolality 293 Calcium 9.4 Total Bilirubin 0.4 AST 23 ALT 29 Alkaline Phosphatase 60 Troponin T Baseline 83 H Troponin T 120 Minute Delta Troponin T Troponin T Hi Sens 6Hr Troponin T Hi Sens 6Hr Delta NT-Pro-B Natriuret Pep 479 H Total Protein 6.8 Albumin 4.1 Globulin 2.7 Lipase 55 Completed Studies During Hospitalization Category Date Time Status XR chest 1V portable [id number] Stat Exams 04/14/22 16:15 Completed Laboratory Last Values WBC 11.5 10^3/uL (4.0-10.0) H 04/14/22 16:34 RBC 5.31 10^6/uL (4.1-5.3) H 04/14/22 16:34 Hgb 15.1 g/dL (11.7-16.6) 04/14/22 16:34 Hct 46.4 % (42.0-52.0) 04/14/22 16:34 MCV 87.4 fl (80-94) 04/14/22 16:34 MCH 28.4 pg (28.0-34.0) 04/14/22 16:34 MCHC 32.5 g/dL (30.0-36.0) 04/14/22 16:34 RDW 14.6 % (12.1-15.1) 04/14/22 16:34 Plt Count 243 10^3/cmm (130-400) 04/14/22 16:34 MPV 10.4 fL (7.4-10.4) 04/14/22 16:34 Lymph % (Auto) Not Reportable 04/14/22 16:34 Woodson % (Auto) Not Reportable 04/14/22 16:34 Lymph # (Auto) Not Reportable 04/14/22 16:34 Woodson # (Auto) Not Reportable 04/14/22 16:34 Total Counted 100 (0-100) 04/14/22 16:34 Atypical Lymphs % 13.0 % (0-5) H 04/14/22 16:34 Absolute Neutrophils 4.9 10^3/cmm (1.4-6.5) 04/14/22 16:34 Segmented Neutrophils 43 % 04/14/22 16:34 Abs Segm Neuts (Man) 4.9 10/cmm (1.6-7.1) 04/14/22 16:34 Band Neutrophils 0.0 % 04/14/22 16:34 Abs Band Neuts (Man) 0.0 10^3/cmm (0.0-1.2) 04/14/22 16:34 Absolute Lymphocytes 5.8 10^3/cmm (1.2-3.4) H 04/14/22 16:34 Lymphocytes (Manual) 37 % 04/14/22 16:34 Monocytes (Manual) 4.0 % 04/14/22 16:34 Absolute Monocytes 0.5 10^3/cmm (0.1-0.6) 04/14/22 16:34 Eosinophils (Manual) 3 % 04/14/22 16:34 Absolute Eosinophils 0.3 10^3/cmm (0.0-0.7) 04/14/22 16:34 Basophils (Manual) 0.0 % 04/14/22 16:34 Absolute Basophils 0.0 10^3/cmm (0.0-0.2) 04/14/22 16:34 Nucleated RBCs 1.0 /100WBC (0-1) 04/14/22 16:34 Smudge Cells 4+ H 04/14/22 16:34 Platelet Estimate Normal (Normal) 04/14/22 16:34 APTT 32.3 SECONDS (23.9-36.7) 04/15/22 11:54 Sodium 138 mmol/L (136-145) 04/15/22 04:33 Potassium 4.1 mmol/L (3.5-5.1) 04/15/22 04:33 Chloride 105 mmol/L (98-107) 04/15/22 04:33 Carbon Dioxide 24 mmol/L (22-29) 04/15/22 04:33 Anion Gap 13.1 (5-19) 04/15/22 04:33 BUN 15 mg/dL (8-23) 04/15/22 04:33 Creatinine 0.9 mg/dL (0.7-1.2) 04/15/22 04:33 GFR Calculation 83.9 mL/min (90-130) L 04/15/22 04:33 Glucose 195 mg/dL (65-115) H 04/15/22 04:33 Calculated Osmolality 292 mOsm/kg (285-295) 04/15/22 04:33 Calcium 9.1 mg/dL (8.5-10.5) 04/15/22 04:33 Total Bilirubin 0.4 mg/dL (0.15-1.2) 04/14/22 16:34 AST 23 U/L (0-40) 04/14/22 16:34 ALT 29 U/L (0-41) 04/14/22 16:34 Alkaline Phosphatase 60 U/L (40-130) 04/14/22 16:34 Troponin T Baseline 83 ng/L (0-15) H 04/14/22 16:34 Troponin T 120 Minute 112.3 ng/L (0-15) H 04/14/22 18:12 Delta Troponin T 29.3 ABS# (0-10) H* 04/14/22 18:12 Troponin T Hi Sens 6Hr 159.8 ng/L (0-15) H 04/14/22 22:47 Troponin T Hi Sens 6Hr Delta 76.8 ng/L (0-12) H* 04/14/22 22:47 NT-Pro-B Natriuret Pep 479 pg/mL (0-125) H 04/14/22 16:34 Total Protein 6.8 g/dL (6.6-8.7) 04/14/22 16:34 Albumin 4.1 g/dL (3.5-5.2) 04/14/22 16:34 Globulin 2.7 g/dL (1.3-4.6) 04/14/22 16:34 Lipase 55 U/L (13-60) 04/14/22 16:34 Radiology Impressions Chest X-Ray 04/14/22 16:15 IMPRESSION: Prominent right hilar region, perhaps reflecting prominent pulmonary vasculature, consider further evaluation with a chest CT to evaluate for possible adenopathy or a less likely mass. Recent Clincial Data Last Vital Signs Temp 98.2 F 04/15/22 07:47 Pulse 78 04/15/22 12:45 Resp 19 H 04/15/22 12:45 BP 157/93 04/15/22 12:45 Pulse Ox 91 04/15/22 12:45 O2 Del Method 04/15/22 10:28 O2 Flow Rate 94 04/15/22 10:28 Vital Signs Temp Pulse Resp BP BP Pulse Ox O2 Del Method 04/15/22 12:45 78 19 H 157/93 91 04/15/22 12:30 89 16 127/103 93 04/15/22 12:15 75 16 126/73 93 04/15/22 12:00 75 23 H 144/75 92 04/15/22 11:45 78 18 139/90 93 04/15/22 11:30 58 L 17 164/91 93 04/15/22 11:15 63 20 H 175/104 93 04/15/22 11:00 58 L 22 H 155/93 92 04/15/22 10:45 66 17 152/99 92 04/15/22 10:30 63 17 183/110 93 04/15/22 10:15 66 17 187/105 96 04/15/22 10:00 69 19 H 158/135 94 04/15/22 09:45 147/88 04/15/22 09:30 59 L 13 147/79 93 04/15/22 09:28 72 12 147/79 93 04/15/22 08:15 66 15 04/15/22 08:00 63 17 04/15/22 07:45 72 11 L 04/15/22 07:30 72 10 L 04/15/22 07:15 71 10 L 04/15/22 07:00 63 0 L 04/15/22 06:45 69 16 04/15/22 06:30 78 17 04/15/22 06:15 88 18 04/15/22 06:00 67 4 L 04/15/22 05:45 73 10 L 04/15/22 05:30 76 5 L 04/15/22 05:15 70 6 L 04/15/22 05:00 62 13 04/15/22 04:45 63 13 04/15/22 04:30 74 6 L 04/15/22 04:15 69 0 L 04/15/22 04:00 62 15 04/15/22 03:45 61 15 04/15/22 03:30 63 3 L 04/15/22 03:15 63 16 04/15/22 03:00 60 1 L 04/15/22 02:45 137 H 11 L 04/15/22 02:30 81 12 04/15/22 02:15 70 14 04/15/22 02:00 70 1 L 04/15/22 01:45 74 15 04/15/22 01:30 71 0 L 04/15/22 01:15 66 10 L 04/15/22 10:28 64 18 98 Room Air 04/15/22 10:23 64 18 148/73 98 Room Air 04/15/22 10:18 63 18 147/69 98 Room Air 04/15/22 10:18 63 18 147/69 99 Room Air 04/15/22 07:47 98.2 F 81 15 135/81 96 CPAP 04/15/22 07:27 04/15/22 02:42 83 129/76 04/15/22 03:41 66 142/85 04/15/22 03:24 97.6 F 65 14 125/69 92 O2 Flow Rate 04/15/22 12:45 04/15/22 12:30 04/15/22 12:15 04/15/22 12:00 04/15/22 11:45 04/15/22 11:30 04/15/22 11:15 04/15/22 11:00 04/15/22 10:45 04/15/22 10:30 04/15/22 10:15 04/15/22 10:00 04/15/22 09:45 04/15/22 09:30 04/15/22 09:28 04/15/22 08:15 04/15/22 08:00 04/15/22 07:45 04/15/22 07:30 04/15/22 07:15 04/15/22 07:00 04/15/22 06:45 04/15/22 06:30 04/15/22 06:15 04/15/22 06:00 04/15/22 05:45 04/15/22 05:30 04/15/22 05:15 04/15/22 05:00 04/15/22 04:45 04/15/22 04:30 04/15/22 04:15 04/15/22 04:00 04/15/22 03:45 04/15/22 03:30 04/15/22 03:15 04/15/22 03:00 04/15/22 02:45 04/15/22 02:30 04/15/22 02:15 04/15/22 02:00 04/15/22 01:45 04/15/22 01:30 04/15/22 01:15 04/15/22 10:28 94 04/15/22 10:23 04/15/22 10:18 04/15/22 10:18 04/15/22 07:47 04/15/22 07:27 94 04/15/22 02:42 93 04/15/22 03:41 94 04/15/22 03:24 Intake & Output/Weight 04/13/22 04/14/22 04/15/22 04/16/22 06:59 06:59 06:59 06:59 Intake Total 461.65 / 461.65 Output Total 800 / 800 Balance 461.65 / 461.65 -800 / -800 Weight 109.316 kg 113.54 kg Vitals Last Vital Signs Temp 98.2 F 04/15/22 07:47 Pulse 78 04/15/22 12:45 Resp 19 H 04/15/22 12:45 BP 157/93 04/15/22 12:45 Pulse Ox 91 04/15/22 12:45 O2 Del Method 04/15/22 10:28 O2 Flow Rate 94 04/15/22 10:28 TS Medications Medications Aspirin (Aspirin 81 Mg Chew Tablet) 81 mg PO BEDTIME [facility] Last Admin: 04/14/22 21:16 Dose: Not Given Fluoxetine HCl (Fluoxetine 20 Mg Capsule) 20 mg PO DAILY [facility] Last Admin: 04/15/22 10:17 Dose: 20 mg Gabapentin (Gabapentin 400 Mg Capsule) 400 mg PO TID [facility] Last Admin: 04/15/22 10:17 Dose: 400 mg Heparin Sodium (Porcine) (Heparin 5,000 Unit/Ml Inj 1 Ml) 0 unit IV PRN PRN; Protocol PRN Reason: Heparin weight-base protocol Last Admin: 04/15/22 05:45 Dose: 2,200 unit Heparin Sodium/Sodium Chloride (Heparin Drip) 25,000 unit in 500 mls @ 0 mls/hr IV .Q0M [facility]; Protocol Last Titration: 04/15/22 05:45 Dose: 15.09 unit/kg/hr, 33 mls/hr Levothyroxine Sodium (Levothyroxine 50 Mcg Tablet) 50 mcg PO DAILY [facility] Last Admin: 04/15/22 10:17 Dose: 50 mcg Lisinopril (Lisinopril 10 Mg Tablet) 10 mg PO DAILY [facility] Last Admin: 04/15/22 10:18 Dose: 10 mg Meclizine HCl (Meclizine 25 Mg Tablet) 25 mg PO BID [facility] Last Admin: 04/15/22 10:17 Dose: 25 mg Morphine Sulfate (Morphine 4 Mg/Ml Sdv 1 Ml) 2 mg IVP Q1H PRN PRN Reason: SEVERE PAIN Last Admin: 04/15/22 12:17 Dose: 2 mg Nitroglycerin (Nitroglycerin 0.4 Mg Sublingual Tablet) 0.4 mg SUBLINGUAL Q5M PRN PRN Reason: CHEST PAIN Last Admin: 04/15/22 07:23 Dose: 1 tab Nitroglycerin (Nitroglycerin 1 Gm/Inch Oint Pkt) 1 inch TOPICAL Q6H [facility] Last Admin: 04/15/22 12:02 Dose: Not Given Ondansetron HCl (Ondansetron 2 Mg/Ml Sdv 2 Ml) 4 mg IVP Q8H PRN PRN Reason: vomiting, or N/V if npo Pantoprazole Sodium (Pantoprazole Dr 40 Mg Tablet) 40 mg PO DAILY [facility] Last Admin: 04/15/22 10:17 Dose: 40 mg Tramadol HCl (Tramadol 50 Mg Tablet) 100 mg PO TID PRN PRN Reason: Pain Last Admin: 04/15/22 11:23 Dose: 100 mg Trazodone HCl (Trazodone 50 Mg Tablet) 50 mg PO BEDTIME [facility] Last Admin: 04/14/22 21:14 Dose: 50 mg Discontinued Medications Aspirin (Aspirin 81 Mg Chew Tablet) 324 mg PO NOW ONE Stop: 04/14/22 19:30 Last Admin: 04/14/22 21:14 Dose: 324 mg Atorvastatin Calcium (Atorvastatin 40 Mg Tablet) 40 mg PO NOW ONE Stop: 04/14/22 19:32 Last Admin: 04/14/22 21:14 Dose: 40 mg Atorvastatin Calcium (Atorvastatin 40 Mg Tablet) 40 mg PO BEDTIME ONE Stop: 04/14/22 19:49 Last Admin: 04/14/22 21:15 Dose: Not Given Enalaprilat (Enalaprilat 1.25 Mg/Ml Inj) 0.625 mg IVP ONCE ONE Stop: 04/15/22 12:11 Fentanyl (Fentanyl 50 Mcg/Ml Inj 2ml) Confirm Administered Dose 100 mcg .ROUTE .STK-MED ONE Stop: 04/15/22 08:24 Heparin Sodium (Porcine) (Heparin 5,000 Unit/Ml Inj 1 Ml) Confirm Administered Dose 5,000 unit .ROUTE .STK-MED ONE Stop: 04/15/22 08:23 Heparin Sodium (Porcine) (Heparin 5,000 Unit/Ml Inj 1 Ml) Confirm Administered Dose 5,000 unit .ROUTE .STK-MED ONE Stop: 04/15/22 09:01 Lidocaine HCl (Lidocaine 1%) Confirm Administered Dose 3 mls @ as directed .ROUTE .STK-MED ONE Stop: 04/15/22 08:23 Nitroglycerin/Dextrose (Nitroglycerin Drip) Confirm Administered Dose 50 mg in 250 mls @ as directed .ROUTE .STK-MED ONE Stop: 04/15/22 09:20 Metoprolol Tartrate (Metoprolol Tartrate 1 Mg/1 Ml Sdv 5 Ml) 5 mg IVP ONCE ONE Stop: 04/15/22 12:11 Midazolam HCl (Midazolam 1 Mg/Ml Inj 2 Ml) Confirm Administered Dose 2 mg .ROUTE .STK-MED ONE Stop: 04/15/22 08:24 Morphine Sulfate (Morphine 4 Mg/Ml Sdv 1 Ml) 4 mg IVP ONCE ONE Stop: 04/14/22 16:16 Last Admin: 04/14/22 16:51 Dose: 4 mg Nitroglycerin (Nitroglycerin 5 Mg/Ml Sdv 10 Ml) Confirm Administered Dose 50 mg .ROUTE .STK-MED ONE Stop: 04/15/22 08:24 Allergies metformin [From Janumet] Allergy (Verified 04/14/22 16:02) ADR-Dizziness sitagliptin [From Janumet] Allergy (Verified 04/14/22 16:02) ADR-Dizziness Home Medications apple cider vinegar 300 mg tablet 900 mg PO BID 04/14/22 [History Confirmed 04/14/22] aspirin 81 mg chewable tablet 81 mg PO BEDTIME 04/14/22 [History Confirmed 04/14/22] cyanocobalamin (vitamin B-12) 1,000 mcg tablet (Vitamin B-12) 1,000 mcg PO DAILY 04/14/22 [History Confirmed 04/14/22] fenofibrate 160 mg tablet 160 mg PO DAILY 04/14/22 [History Confirmed 04/14/22] fluoxetine 20 mg capsule 20 mg PO DAILY 04/14/22 [History Confirmed 04/14/22] gabapentin 400 mg capsule 400 mg PO TID 04/14/22 [History Confirmed 04/14/22] glipizide 10 mg tablet 10 mg PO BID 04/14/22 [History Confirmed 04/14/22] levothyroxine 50 mcg tablet 50 mcg PO DAILY 04/14/22 [History Confirmed 04/14/22] lisinopril 10 mg tablet 10 mg PO DAILY 04/14/22 [History Confirmed 04/14/22] meclizine 25 mg tablet 25 mg PO BID 04/14/22 [History Confirmed 04/14/22] meloxicam 15 mg tablet 15 mg PO DAILY 04/14/22 [History Confirmed 04/14/22] metformin 1,000 mg tablet 1,000 mg PO BID 04/14/22 [History Confirmed 04/14/22] pantoprazole 40 mg tablet,delayed release 40 mg PO DAILY 04/14/22 [History Confirmed 04/14/22] tramadol 50 mg tablet 100 mg PO TID PRN Pain 04/14/22 [History Confirmed 04/14/22] trazodone 50 mg tablet 50 mg PO BEDTIME 04/14/22 [History Confirmed 04/14/22] vit [id number] 500 mg-50 mg-25 mg-40 mg tablet (Bioflex) 1 tab PO BID 04/14/22 [History Confirmed 04/14/22] Discharge Plan Discharge Patient Disposition: Home Condition: Stable Prescriptions: No Action trazodone 50 mg tablet 50 mg PO BEDTIME meloxicam 15 mg tablet 15 mg PO DAILY glipizide 10 mg tablet 10 mg PO BID gabapentin 400 mg capsule 400 mg PO TID tramadol 50 mg tablet 100 mg PO TID PRN (Reason: Pain) meclizine 25 mg tablet 25 mg PO BID levothyroxine 50 mcg tablet 50 mcg PO DAILY pantoprazole 40 mg tablet,delayed release (DR/EC) 40 mg PO DAILY metformin 1,000 mg tablet 1,000 mg PO BID lisinopril 10 mg tablet 10 mg PO DAILY fluoxetine 20 mg capsule 20 mg PO DAILY fenofibrate 160 mg tablet 160 mg PO DAILY aspirin 81 mg Tablet,Chewable 81 mg PO BEDTIME Vitamin B-12 1,000 mcg Tablet 1,000 mcg PO DAILY apple cider vinegar 300 mg Tablet 900 mg PO BID Bioflex 878-20-14-40 mg Tablet 1 tab PO BID Discharge Orders: Transfer Out of Facility (Order); Ordered 04/15/22 Ordered By: Daren Arredondo Referrals: Mely Vides DO [Primary Care Provider] - Patient Instructions: Opioid Safety Transfer Attestations Time Spent in Transfer Care: critical care time Critical Care Time (min): 55 Quality Metrics Clinical Quality Measures [ Acute Myocardial Infaction { Clinical Trial Participant: No; Contraindication to aspirin: None; Aspirin prescribed; Contraindication to statin: None; Statin prescribed;}] Coding Level of Care Code Acute Nurse Office for [facility] Fwd Diagnoses Acute non-ST elevation myocardial infarction (NSTEMI) I21.4 Diabetes E11.9 Hyperlipidemia E78.5 Hypertension I10
[2022-04-15] MEDS: enalaprilat 1.25 mg/mL Inj 0.625 MG IVP (13:17)
[2022-04-15] MEDS: metoprolol tartrate 1 mg/1 mL SDV 5 mL 5 MG IVP (13:18)
--- NOTE | 2022-04-15 13:21 | P.MISC_ITS ---
Miscellaneous Note Purpose of Documentation: Brief procedure Findings: Note: FINDINGS: Left main artery: Patent LAD:Mid LAD is totally occluded (CLINICAL LABORATORY AIDE). Weak collaterals seen to LAD. LCx:Large sized vessel. Mid LCx has 80% stenosis. Distal vessel has 80-90% stenosis. OM 1 is a large sized vessel that comes off prior to stenosis and has mild to moderate luminal irregularities. RCA: Totally occluded in the mid segment. (CLINICAL LABORATORY AIDE) LV gram: EF is 25%-30%. Mid to distal Anterior wall and apical leija shows akinesis. PLAN: Patient has CLINICAL LABORATORY AIDE of mid LAD and mid RCA. Large sized left circumflex artery has 30% stenosis in the midsegment. Distal vessel noted with 90% stenosis. OM1 is a large sized vessel that comes off prior to stenosis and has mild to moderate luminal irregularities. We will recommend evaluation by CT surgery and heart team discussion prior to revascularization. Unfortunately our CT surgery team is not available today and patient has been having on and off chest discomfort episodes. We will plan on transferring him today. Continue aspirin, heparin drip and nitro drip. We will hold off on Plavix. Awaiting echocardiogram
--- NOTE | 2022-04-15 15:11 | PC.NURSE ---
post cath recieved in room had hypertension and some chest pain and shoulder pain . started ntg gtt and titrated to lower pressures ect. doctor ashwin called with orders medication given at this time and and heparin started . and report given esthela and torres biggs transfered
== END 2022-04-15 15:23 | disposition other institution (70) ==
LOC: ER 17:47 → MEDSURG 18:52 → ICU 04-15 09:51
PROVIDERS: Internal Medicine; Admitting Provider Internal Medicine; Emergency Provider Emergency Medicine; PCP Family Medicine; Visit Provider Internal Medicine
DX: I21.4 Non-ST elevation (NSTEMI) myocardial infarction (principal); E11.9 Type 2 diabetes mellitus without complications; E78.5 Hyperlipidemia, unspecified; I10 Essential (primary) hypertension; I25.10 Atherosclerotic heart disease of native coronary artery without angina pectoris; Z87.891 Personal history of nicotine dependence; Z82.49 Family history of ischemic heart disease and other diseases of the circulatory system
CPT/HCPCS: 36415; 71045; 80048; 80053; 83690; 83880; 84484; 85007; 85025; 85730; 93005; 93306; 93458; 94660; 96360; 96374; 99152; 99153; 99285; C1769; C1887; C1894; G0378; J1644; J2250; J2270; J3010; J3490; J8597; Q9967

== ENCOUNTER → 2024-01-09 15:12 | Outpatient (BNVA) | payer MEDICARE, SELFPAY | PROVIDERS: PCP Family Medicine; Visit Provider Dermatology | DX: L57.0 Actinic keratosis (principal); D48.5 Neoplasm of uncertain behavior of skin; L30.0 Nummular dermatitis; L81.4 Other melanin hyperpigmentation; D22.5 Melanocytic nevi of trunk | CPT/HCPCS: 17000; 99204 ==

== ENCOUNTER → 2024-04-19 11:03 | Outpatient (BNVA) | payer OTHER, SELFPAY | PROVIDERS: PCP Family Medicine; Visit Provider Nurse Practitioner Family | DX: D48.5 Neoplasm of uncertain behavior of skin (principal); L57.0 Actinic keratosis; L81.4 Other melanin hyperpigmentation; D22.5 Melanocytic nevi of trunk; L82.1 Other seborrheic keratosis | CPT/HCPCS: 11102; 17000; 99213 ==

== ENCOUNTER → 2024-05-07 07:51 | Outpatient (BNVA) | payer OTHER, SELFPAY | PROVIDERS: PCP Family Medicine; Visit Provider Dermatology | DX: C44.311 Basal cell carcinoma of skin of nose (principal) | CPT/HCPCS: 14060; 17311 ==